=== PATIENT | female | born 1985 | race Caucasian/White ===

== ENCOUNTER 2018-09-25 02:09 | Inpatient (IN) | payer OTHER ==
[~2018-09-25] VITALS: Ht 167.6 cm; Wt 86.4 kg
[2018-09-25] VITALS (70 sets, daily range): BP systolic 90–1110; BP diastolic 52–85; PULSE 62–121; TEMP 97.8–98.3
[2018-09-25] MEDS ORDERED: PRENATAL 191 TAB PO (02:56)
[2018-09-25] MEDS ORDERED: FOLIC ACID 11 MG/TA1 PO (02:57)
[2018-09-25 04:37] LABS: BASO % 0.1 % (0.0-2.0); EOS # 0.1 (0.0-0.7); EOS % 1.3 % (0-4.0); GRAN # 6.6 (1.4-6.5); GRAN % 71.5 % (42.2-75.2); HEMATOCRIT 32.3 % (37.0-47.0); HEMOGLOBIN 11.2 g/dl (12.5-16.0); LYMPH # 1.7 (1.2-3.4); LYMPH % 18.3 % (20.0-51.0); MEAN CELL VOLUME 94 fl (80.0-100.0); MEAN CORPUSCULAR HEMOGLOBIN 33 pg (27.0-31.0); MEAN CORPUSCULAR HGB CONC 35 g/dl (33.0-37.0); MEAN PLATELET VOLUME 10.9 fl (7.4-10.4); MONO # 0.8 (0.1-0.6); MONO % 8.5 % (1.7-9.3); PLATELET COUNT 136 K/mm3 (130-400); RED BLOOD COUNT 3.42 M/mm3 (4.10-5.30); REDCELL DISTRIBUTION WIDTH-CV 12.8 % (11.5-14.5)
[2018-09-26] VITALS (14 sets, daily range): BP systolic 92–124; BP diastolic 50–72; PULSE 68–88; TEMP 98–98.7
[2018-09-27] MEDS ORDERED: PERCOCET 325 MG1 TA2 PO (07:56)
[2018-09-27] MEDS ORDERED: MOTRIN 600600 MG/TAB PO (07:56)
[2018-09-27 08:23] VITALS: BP 106/69; PULSE 82; TEMP 98.3
== END 2018-09-27 17:20 | disposition home or self-care (01) | DRG 788 ==
LOC: LDRO 02:09 → OB 03:06 → LDR 03:06 → OB 09-26 00:55
PROVIDERS: Obstetrics & Gynecology; ADMIT Obstetrics & Gynecology
PROC: 10D00Z1 Extraction of Products of Conception, Low, Open Approach (ICD-10-PCS; principal; 2018-09-25)
DX: O42.92 Full-term premature rupture of membranes, unspecified as to length of time between rupture and onset of labor (principal); O62.0 Primary inadequate contractions; O69.1XX0 Labor and delivery complicated by cord around neck, with compression, not applicable or unspecified; O32.4XX0 Maternal care for high head at term, not applicable or unspecified; O62.2 Other uterine inertia; Z37.0 Single live birth; Z3A.40 40 weeks gestation of pregnancy
CPT/HCPCS: J0690; J1885; J2210; J2270; J2400; J2405; J2590; J7120